=== PATIENT | male | born 1935 | race Caucasian/White ===

== ENCOUNTER 2017-03-21 13:47 | Inpatient (IN) | payer OTHER ==
[~2017-03-21] VITALS: Ht 172.7 cm; Wt 63.6 kg
[~2017-03-21 13:47] MED LIST: ASPI81TA3 PO; BENA40TA41 PO; KENC25 TOP; METO-53 PO
--- NOTE | 2017-03-21 14:15 | ERD ---
ER Documentation Chief Complaint Chief Complaint Fainted HPI The patient is a 81-year-old male, presenting because he fainted at the daycare , complaints of dizziness, nausea but no vomiting. He is now awake, alert, denies any symptoms. He had similar symptoms previously, denies chest pain, neck pain, dyspnea, abdominal pain, vomiting or dysuria. He does smoke nor drink Medical history: Hypertension, dyslipidemia, CAD, history of colon cancer, A Fib Surgical History: Colostomy ROS All systems reviewed and are negative except as per history of present illness. Medications Home Meds Reported Medications Pyridoxine Hcl* (Vitamin B-6*) 50 Mg Capsule, 50 MG PO DAILY, CAP 03/21/17 Acetaminophen* (Tylenol*) 500 Mg Tab, 500 MG PO Q4H Y for MILD PAIN LEVEL 1-3, TAB 03/21/17 Levothyroxine Sodium* (Levothyroxine Sodium*) 100 Mcg Tablet, 100 MCG PO BEFORE BREAKFAST, #30 TAB 03/21/17 Pravastatin Sodium* (Pravastatin Sodium*) 40 Mg Tablet, 40 MG PO HS, TAB 03/21/17 Metoprolol Tartrate* (Lopressor*) 50 Mg Tab, 50 MG PO BID, #60 TAB 03/21/17 Losartan-Hydrochlorothiazide (Losartan-HCTZ) 100-25 Mg Tab, 1 TAB PO DAILY, TAB 03/21/17 Aspirin* (Aspirin* EC) 81 Mg Tablet.dr, 81 MG PO DAILY, TAB 03/21/17 Amlodipine Besylate* (Amlodipine Besylate*) 10 Mg Tablet, 10 MG PO DAILY, #30 TAB 03/21/17 Discontinued Reported Medications Metoprolol (Lopressor) 50 Mg Tablet, 50 MG PO DAILY 04/27/12 Benazepril Hcl* (Benazepril Hcl*) 40 Mg Tablet, 40 MG PO DAILY 04/27/12 Aspirin* (Aspirin* Chew) 81 Mg Tab.chew, 81 MG PO DAILY 04/27/12 Discontinued Scripts Triamcinolone Acetonide* (Kenalog*) 0.25%-15GM Cr, 1 APPLIC TOP BID for 10 Days , EA Prov:ZHAO CHAUDHARY MD 07/20/15 Allergies Allergies: Coded Allergies: No Known Allergy (Unverified , 03/21/17) PMhx/Soc History of Surgery: Yes (colon resection with colostomy) Anesthesia Reaction: No Hx Neurological Disorder: No Hx Respiratory Disorders: Yes (asthma,) Hx Cardiac Disorders: Yes (HTN, HIGH CHOLESTEROL, ) Hx Psychiatric Problems: No Hx Miscellaneous Medical Probl: No Hx Alcohol Use: No Hx Substance Use: No Hx Tobacco Use: No Physical Exam Vitals Vital Signs Date Time Temp Pulse Resp B/P Pulse Ox O2 Delivery O2 Flow Rate FiO2 03/21/17 16:02 66 17 104/63 Nasal Cannula 2.0 03/21/17 15:14 73 15 117/71 95 Nasal Cannula 2.0 03/21/17 14:11 98.6 75 17 99/55 100 Physical Exam Const: No acute distress. Head: Atraumatic. Eyes: Normal Conjunctiva. ENT: Normal External Ears, Nose and Mouth. Neck: Full range of motion. No meningismus. Resp: Clear to auscultation bilaterally. Cardio: Irregularly irregular Abd: Soft, non distended, normal bowel sounds, non tender. Skin: No petechiae or rashes. Back: No midline or flank tenderness. Ext: No cyanosis, or edema. Neur: Awake and alert. No focal deficit Psych: Normal Mood and Affect. Result Diagram: 03/21/17 1458 03/21/17 1458 Results 24 hrs Laboratory Tests Test 03/21/17 14:19 03/21/17 14:58 Bedside Glucose 118mg/dL White Blood Count 9.710^3/ul Red Blood Count 5.0210^6/ul Hemoglobin 14.9g/dl Hematocrit 43.7% Mean Corpuscular Volume 87.1fl Mean Corpuscular Hemoglobin 29.7pg Mean Corpuscular Hemoglobin Concent 34.1g/dl Red Cell Distribution Width 13.7% Platelet Count 32760^3/UL Mean Platelet Volume 8.7fl Neutrophils % 73.5% Lymphocytes % 12.5% Monocytes % 9.7% Eosinophils % 3.3% Basophils % 0.6% Nucleated Red Blood Cells % 0.0/100WBC Neutrophils # 7.110^3/ul Lymphocytes # 1.210^3/ul Monocytes # 0.910^3/ul Eosinophils # 0.310^3/ul Basophils # 0.110^3/ul Nucleated Red Blood Cells # 0.010^3/ul Prothrombin Time 12.4Sec Prothrombin Time Ratio 1.0 INR International Normalized Ratio 0.92 Activated Partial Thromboplast Time 27.2Sec Sodium Level 143mmol/L Potassium Level 4.6mmol/L Chloride Level 107mmol/L Carbon Dioxide Level 21mmol/L Anion Gap 20 Blood Urea Nitrogen 29mg/dl Creatinine 1.81mg/dl Glucose Level 117mg/dl Calcium Level 9.8mg/dl Troponin I < 0.012ng/ml Current Medications Medications (Trade) Dose Ordered Sig/Kasi Route PRN Reason Start Time Stop Time Status Last Admin Dose Admin Sodium Chloride (NS) 500 ml @ 500 mls/hr Q1H ONCE IV 03/21/17 14:30 03/21/17 15:29 DC 03/21/17 14:57 Procedures/[place] [id number] Radiology Main Line: [phone] DIAGNOSTIC IMAGING REPORT Patient: ROSARIO FELTON : 1935 Age: 81 Sex: M MR #: [id number] DOS: 03/21/17 1428 Ordering MD: CHADWICK DAVISON MD Location: E/R Room/Bed: PROCEDURE: CT Brain without contrast. CLINICAL INDICATION: Syncope. TECHNIQUE: A CT of the brain was performed on multidetector high-resolution CT scanner utilizing axial sections from the skull base through the vertex without contrast. The scan was reviewed in soft tissue brain and high frequency resolution bone algorithm windows. Images were reviewed on a high- resolution PACS workstation. One or more the following does reduction techniques were utilized: Automated exposure control, adjustment of the mA/ or kV according to patient's size, or use of iterative reconstruction technique. The exam CTDI = 44.26 mGy and the DLP = 720.23 mGy-cm. DICOM images are available. COMPARISON: Brain CT 04/26/2012. Brain MRI 04/26/2012. FINDINGS: The ventricles and sulci are mildly prominent indicative of volume loss. There is no intracranial hemorrhage, mass effect or midline shift. No abnormal intra- axial or extra-axial fluid collections are seen. The cannon/white matter differentiation is preserved. There are mild scattered foci of hypoattenuation in the white matter, which are nonspecific in etiology but likely reflect chronic small vessel ischemic changes. There are mild intracranial vascular calcifications consistent with atherosclerosis. The visualized paranasal sinuses are essentially clear. IMPRESSION: 1. No acute intracranial hemorrhage, transcortical infarction or mass effect. 2. Mild intracranial atherosclerosis and chronic small vessel ischemic changes. 3. Mild generalized cerebral volume loss. RPTAT: HH .Luzma Wadsworth MD, MD Date Time Electronically viewed and signed by .Luzma Wadsworth MD, MD on 03/21/2017 15: 38 .[place] [id number] Radiology Main Line: [phone] DIAGNOSTIC IMAGING REPORT Patient: ROSARIO FELTON : 1935 Age: 81 Sex: M MR #: [id number] DOS: 03/21/17 1428 Ordering MD: CHADWICK DAVISON MD Location: E/R Room/Bed: PROCEDURE: CT Brain without contrast. CLINICAL INDICATION: Syncope. TECHNIQUE: A CT of the brain was performed on multidetector high-resolution CT scanner utilizing axial sections from the skull base through the vertex without contrast. The scan was reviewed in soft tissue brain and high frequency resolution bone algorithm windows. Images were reviewed on a high- resolution PACS workstation. One or more the following does reduction techniques were utilized: Automated exposure control, adjustment of the mA/ or kV according to patient's size, or use of iterative reconstruction technique. The exam CTDI = 44.26 mGy and the DLP = 720.23 mGy-cm. DICOM images are available. COMPARISON: Brain CT 04/26/2012. Brain MRI 04/26/2012. FINDINGS: The ventricles and sulci are mildly prominent indicative of volume loss. There is no intracranial hemorrhage, mass effect or midline shift. No abnormal intra- axial or extra-axial fluid collections are seen. The cannon/white matter differentiation is preserved. There are mild scattered foci of hypoattenuation in the white matter, which are nonspecific in etiology but likely reflect chronic small vessel ischemic changes. There are mild intracranial vascular calcifications consistent with atherosclerosis. The visualized paranasal sinuses are essentially clear. IMPRESSION: 1. No acute intracranial hemorrhage, transcortical infarction or mass effect. 2. Mild intracranial atherosclerosis and chronic small vessel ischemic changes. 3. Mild generalized cerebral volume loss. RPTAT: HH .Luzma Wadsworth MD, MD Date Time Electronically viewed and signed by .Luzma Wadsworth MD, MD on 03/21/2017 15: 38 .N/ CC: CHADWICK DAVISON MD CC: CHADWICK DAVISON MD EKG: Read by emergency physician Rate/Rhythm: A fib 74 beats/min QRS, ST, T-waves: No ST elevation, no T inversion, LVH Impression: Abnormal EKG MEDICAL MAKING DECISION: The patient is a 81-year-old male, presenting with acute syncope of unclear etiology, most likely due to acute dehydration, DIANE. He was treated with 500 mL normosaline with good response The differential diagnoses considered include but are not limited to bradyarrhythmia, tachyarrhythmias, aortic outflow obstruction, neurogenic including subarachnoid hemorrhage, orthostatic hypotension and all of its causes , hypoglycemia, dysautonomia, medications. Departure Diagnosis: Primary Impression: Syncope Additional Impressions: Dehydration Acute kidney injury Condition: Stable Comments I discussed the findings with the patient. I discussed the patient with the hospitalist Dr. Hyatt at 4 PM who was made aware of the lab, the treatment, the patient condition. The patient is admitted to [facility] Disclaimer: Inadvertent spelling and grammatical errors are likely due to EHR/ dictation software use and do not reflect on the overall quality of patient care. Also, please note that the electronic time recorded on this note does not necessarily reflect the actual time of the patient encounter. CHADWICK DAVISON MD Mar 21, 2017 14:15
[2017-03-21] MEDS ORDERED: SOD CHLORIDE 0.9% 500 ML IV ONE (14:30)
[2017-03-21 15:15] LABS: BASOPHIL # 0.1 10^3/ul (0.0-0.1); BASOPHILS % 0.6 % (0.0-2.0); EOSINOPHILS # 0.3 10^3/ul (0.0-0.5); EOSINOPHILS % 3.3 % (0.0-7.0); HEMATOCRIT 43.7 % (42.0-52.0); HEMOGLOBIN 14.9 g/dl (14.0-18.0); LYMPHOCYTES # 1.2 10^3/ul (0.8-2.9); LYMPHOCYTES % 12.5 % (15.0-51.0); MEAN CORPUSCULAR HEMOGLOBIN 29.7 pg (29.0-33.0); MEAN CORPUSCULAR HGB CONC 34.1 g/dl (32.0-37.0); MEAN CORPUSCULAR VOLUME 87.1 fl (82.0-101.0); MEAN PLATELET VOLUME 8.7 fl (7.4-10.4); MONOCYTE # 0.9 10^3/ul (0.3-0.9); MONOCYTES % 9.7 % (0.0-11.0); NEUTROPHIL # 7.1 10^3/ul (1.6-7.5); NEUTROPHILS % 73.5 % (39.0-77.0); PLATELET COUNT 304 10^3/UL (140-415); RED BLOOD COUNT 5.02 10^6/ul (4.70-6.10); RED CELL DISTRIBUTION WIDTH 13.7 % (11.5-14.5); WHITE BLOOD COUNT 9.7 10^3/ul (4.8-10.8)
[2017-03-21 15:36] LABS: INR 0.92; PROTIME 12.4 Sec (11.9-14.9)
[2017-03-21 15:37] LABS: PARTIAL THROMBOPLASTIN TIME 27.2 Sec (25.0-35.0)
--- NOTE | 2017-03-21 15:38 | RADRPT ---
PROCEDURE: CT Brain without contrast. CLINICAL INDICATION: Syncope. TECHNIQUE: A CT of the brain was performed on multidetector high-resolution CT scanner utilizing a xial sections from the skull base through the vertex without contrast. The scan was reviewed in sof t tissue brain and high frequency resolution bone algorithm windows. Images were reviewed on a high -resolution PACS workstation. One or more the following does reduction techniques were utilized: Aut omated exposure control, adjustment of the mA/ or kV according to patient's size, or use of iterativ e reconstruction technique. The exam CTDI = 44.26 mGy and the DLP = 720.23 mGy-cm. DICOM images are available. COMPARISON: Brain CT 04/26/2012. Brain MRI 04/26/2012. FINDINGS: The ventricles and sulci are mildly prominent indicative of volume loss. There is no intracranial he morrhage, mass effect or midline shift. No abnormal intra-axial or extra-axial fluid collections ar e seen. The cannon/white matter differentiation is preserved. There are mild scattered foci of hypoattenuation in the white matter, which are nonspecific in etiol ogy but likely reflect chronic small vessel ischemic changes. There are mild intracranial vascular calcifications consistent with atherosclerosis. The visualized paranasal sinuses are essentially rene ar. IMPRESSION: 1. No acute intracranial hemorrhage, transcortical infarction or mass effect. 2. Mild intracranial atherosclerosis and chronic small vessel ischemic changes. 3. Mild generalized cerebral volume loss. RPTAT: HH .Luzma Wadsworth MD, MD Date Time Electronically viewed and signed by .Luzma Wadsworth MD, MD on 03/21/2017 15:38 .N/
[2017-03-21 15:43] LABS: ANION GAP 20 (8-16); BLOOD UREA NITROGEN 29 mg/dl (7-20); CALCIUM 9.8 mg/dl (8.4-10.2); CARBON DIOXIDE 21 mmol/L (21-31); CHLORIDE 107 mmol/L (97-110); CREATININE 1.81 mg/dl (0.61-1.24); GLUCOSE 117 mg/dl (70-220); POTASSIUM 4.6 mmol/L (3.5-5.1); SODIUM 143 mmol/L (135-144)
[2017-03-21 15:57] LABS: TROPONIN-I < 0.012 ng/ml (0.00-0.12)
[2017-03-21] MEDS ORDERED: ASPI-664 PO (16:52)
[2017-03-21] MEDS ORDERED: AMLO-147 PO (16:52)
[2017-03-21] MEDS ORDERED: LOSA1TAB20 PO (16:52)
[2017-03-21] MEDS ORDERED: PRAV40TA76 PO (16:53)
[2017-03-21] MEDS ORDERED: LEVO100T87 PO (16:53)
[2017-03-21] MEDS ORDERED: METO-429 PO (16:53)
[2017-03-21] MEDS ORDERED: TYL500 PO (16:54)
[2017-03-21] MEDS ORDERED: PYRI50CA PO (16:55)
[2017-03-21 17:39] VITALS: PULSE 77
[2017-03-21 17:42] VITALS: BP 123/69; PULSE 80; RESP 20
[2017-03-21 18:19] VITALS: Ht 172.7 cm; Wt 63.6 kg
[2017-03-21] MEDS ORDERED: NACL 0.9% 3 ML SYG IV SCH (19:00)
[2017-03-21] MEDS ORDERED: ONDANSETRON 4 MG INJ IV PRN (19:00)
[2017-03-21] MEDS ORDERED: DOCUSATE SODIUM 100 MG CAP PO PRN (19:00)
[2017-03-21] MEDS ORDERED: ACETAMINOPHEN 325 MG TAB PO PRN (19:00)
[2017-03-21] MEDS ORDERED: morphine 2 MG INJ IV PRN (19:00)
[2017-03-21] MEDS ORDERED: HYDROCODONE/APAP (5/325) TAB PO PRN (19:00)
--- NOTE | 2017-03-21 19:27 | HP ---
Date/Time of Note Date/Time of Note DATE: 03/21/17 TIME: 19:22 Assessment/Plan VTE Prophylaxis VTE Prophylaxis Intervention: LMWH Assessment/Plan Chief Complaint/Hosp Course 1. Syncope likely secondary to orthostatic hypotension Will hold patient's home BP medications of losartan hydrochlorothiazide and Norvasc Resume metoprolol only CT brain shows no acute findings Carotid ultrasound and 2D echo PT eval 2. History of NE Continue home aspirin, statin and beta-ivette 3. History of colon cancer status post remote history of resection-no acute issues 4. Acute versus chronic kidney disease Monitor Prophylaxis: Lovenox Problems: HPI/ROS Admit Date/Time Admit Date/Time Mar 21, 2017 at 16:02 Hx of Present Illness Patient is an 81-year-old male with a history of hypertension and NE 17 years ago as well as colon cancer status post surgery in the past. Patient was at his adult daycare when he syncopized, BP was noted to be low. Patient does have a history of intermittent hypotension, patient did not hit his head on the ground, he currently has no complaints. ROS Constitutional: improved, no complaints Eyes: no complaints ENT: no complaints Respiratory: no complaints Cardiovascular: no complaints Gastrointestinal: no complaints Genitourinary: no complaints Musculoskeletal: no complaints Skin: no complaints Neurologic: no complaints Endocrine: no complaints Lymphatic: no complaints Psychological: nl mood/affect, no complaints Immunologic: no complaints PMH/Family/Social Past Medical History Medical History: cancer (colon), hypertension Past Surgical History Past Surgical Hx: bowel resection Family History Significant Family History: no pertinent family hx Social History Alcohol Use: none Smoking Status: Former smoker Drug Use: none Exam/Review of Systems Vital Signs Vitals Vital Signs Date Time Temp Pulse Resp B/P Pulse Ox O2 Delivery O2 Flow Rate FiO2 03/21/17 17:42 98.5 80 20 123/69 2 Nasal Cannula 03/21/17 16:02 2.0 Exam Constitutional: alert, oriented Respiratory: clear to auscultation Cardiovascular: regular rate and rhythm Gastrointestinal: soft, No distended Musculoskeletal: nl extremities to inspection Labs Result Diagram: 03/21/17 1458 03/21/17 1458 Medications Medications Current Medications Ondansetron HCl (Zofran Inj) 4 mg Q6H PRN IV NAUSEA AND/OR VOMITING; Start 03/21/17 at 19:00 Acetaminophen (Tylenol Tab) 650 mg Q6H PRN PO PAIN LEVEL 1-3 OR FEVER; Start 03/21/17 at 19:00 Acetaminophen/ Hydrocodone Bitart ([place] (5/325)) 1 tab Q6H PRN PO MODERATE PAIN LEVEL 4-6; Start 03/21/17 at 19:00 Morphine Sulfate (morphine) 2 mg Q4H PRN IV SEVERE PAIN LEVEL 7-10; Start 03/21 at 19:00 Docusate Sodium (Colace) 100 mg Q12H PRN PO CONSTIPATION; Start 03/21/17 at 19: 00 Enoxaparin Sodium (Lovenox) 40 mg DAILY SC ; Start 03/22/17 at 09:00 Amlodipine Besylate (Norvasc) 10 mg DAILY PO ; Start 03/22/17 at 09:00 Aspirin (Halfprin) 81 mg DAILY PO ; Start 03/22/17 at 09:00 Pyridoxine HCl (Vitamin B6) 50 mg DAILY PO ; Start 03/22/17 at 09:00 Atorvastatin Calcium (Lipitor) 10 mg DAILY@21 PO ; Start 03/21/17 at 21:00 Influenza Virus Vaccine (Fluzone) 0.5 ml ONCE ONCE IM* ; Start 03/22/17 at 09:00 ; Stop 03/22/17 at 09:01 BRANDT GRAVES Mar 21, 2017 19:27
[2017-03-21 20:00] VITALS: PULSE 80
--- NOTE | 2017-03-21 20:22 | RADRPT ---
PROCEDURE: US Carotids. CLINICAL INDICATION: Syncope TECHNIQUE: Multiple sonographic of the carotid bifurcation region and vertebral arteries were obta ined utilizing cannon scale, duplex and color-flow imaging. The images were reviewed on a PACS worksta tion. COMPARISON: No prior studies are available for comparison. FINDINGS: Evaluation of the right carotid bifurcation region reveals moderate atherosclerotic disease. Evaluation of the left carotid bifurcation region reveals mild to moderate calcific atherosclerotic disease. There is antegrade flow within the vertebral arteries bilaterally. RIGHT CAROTID MEASUREMENTS: Common Carotid Adzpfy56.1 (cm/sec) Internal Carotid Artery - fdlajsre064.7 (cm/sec) Internal Carotid Artery - ylf885 (cm/sec) Internal Carotid Artery - jhqlqo65.6 (cm/sec) Internal Carotid/Common Carotid6.6 LEFT CAROTID MEASUREMENTS: Common Carotid Lhebwl80.9 (cm/sec) Internal Carotid Artery - ngmywqds53.6 (cm/sec) Internal Carotid Artery - mid58.8 (cm/sec) Internal Carotid Artery - aqqrdm07.4 (cm/sec) Internal Carotid/Common Carotid1.0 IMPRESSION: 1. Approximately 50-69% stenosis in the proximal right internal carotid artery. 2. Approximately 70-99% stenosis in the mid-right internal carotid artery. Further evaluation with a CT angiogram is suggested. 3. No hemodynamically significant stenosis in the left carotid system. RPTAT: HPNM Physician Lester Date Time Electronically viewed and signed by Physician Lester on 03/21/2017 20:22 /
[2017-03-21 20:53] VITALS: BP 107/65; RESP 17
[2017-03-21] MEDS ORDERED: ATORVASTATIN 10 MG TAB PO SCH (21:00)
[2017-03-22] VITALS (10 sets, daily range): BP systolic 98–120; BP diastolic 56–74; PULSE 40–80; RESP 17
[2017-03-22 06:46] LABS: BASOPHILS % 0.7 % (0.0-2.0); EOSINOPHILS # 0.7 10^3/ul (0.0-0.5); HEMATOCRIT 39.6 % (42.0-52.0); HEMOGLOBIN 13.4 g/dl (14.0-18.0); LYMPHOCYTES # 1.4 10^3/ul (0.8-2.9); LYMPHOCYTES % 23.9 % (15.0-51.0); MEAN CORPUSCULAR HEMOGLOBIN 29.6 pg (29.0-33.0); MEAN CORPUSCULAR HGB CONC 33.8 g/dl (32.0-37.0); MEAN CORPUSCULAR VOLUME 87.6 fl (82.0-101.0); MEAN PLATELET VOLUME 8.9 fl (7.4-10.4); MONOCYTE # 0.6 10^3/ul (0.3-0.9); MONOCYTES % 10.3 % (0.0-11.0); NEUTROPHIL # 3.2 10^3/ul (1.6-7.5); NEUTROPHILS % 53.9 % (39.0-77.0); PLATELET COUNT 252 10^3/UL (140-415); RED BLOOD COUNT 4.52 10^6/ul (4.70-6.10); RED CELL DISTRIBUTION WIDTH 13.7 % (11.5-14.5); WHITE BLOOD COUNT 5.9 10^3/ul (4.8-10.8)
[2017-03-22 06:59] LABS: ALBUMIN 3.3 g/dl (3.3-4.9); BILIRUBIN,INDIRECT 0.4 mg/dl (0-1.1); BILIRUBIN,TOTAL 0.4 mg/dl (0.2-1.3); CALCIUM 9.7 mg/dl (8.4-10.2); CHOL/HDL RATIO 7.1 RATIO; CREATININE 1.38 mg/dl (0.61-1.24); PHOSPHORUS 4.2 mg/dl (2.5-4.9); POTASSIUM 4.5 mmol/L (3.5-5.1); TOTAL PROTEIN 6.6 g/dl (6.1-8.1)
[2017-03-22] MEDS ORDERED: LEVOTHYROXINE 100 MCG TAB PO SCH (07:00)
[2017-03-22 07:14] LABS: T3 UPTAKE 31.2 % (23.5-40.5)
[2017-03-22] MEDS ORDERED: AMLODIPINE 10 MG TAB PO SCH (09:00)
[2017-03-22] MEDS ORDERED: METOPROLOL 50 MG TAB PO SCH (09:00)
[2017-03-22] MEDS ORDERED: PYRIDOXINE 50 MG TAB PO SCH (09:00)
[2017-03-22] MEDS ORDERED: INFLUENZA VIRUS VACCINE 0.5 ML SYG IM* ONE (09:00)
[2017-03-22] MEDS ORDERED: ENOXAPARIN 40 MG/0.4 ML SYG SC SCH (09:00)
[2017-03-22] MEDS ORDERED: ASPIRIN (EC) 81 MG TAB PO SCH (09:00)
--- NOTE | 2017-03-22 12:13 | RADRPT ---
Echocardiogram Report Patient Name: ROSARIO FELTON Gender: Male Date: 1935 Study Date: 22-Mar-2017 Disc Pad Grinder: Liborio Malave [facility] Location: [facility] Ref. Physician: BRANDT GRAVES Quality: Good Procedures: Transthoracic echocardiogram with complete 2D, M-Mode, and doppler examination. Indications: Syncope. 2D/M Mode Doppler Measurement Value Normal Ranges Measurement Value Normal Ranges LVIDd 2D 3.7 3.5 - 5.6 cm AV Peak Tomy 1.0 m/sec LVIDs 2D 2.7 2.1 - 4.1 cm AV Peak PG 3.8 mmHg LVPWd 2D 1.3 0.6 - 1.1 cm AI Peak PG 28.2 mmHg IVSd 2D 1.3 0.6 - 1.1 cm AI Peak Tomy 2.7 m/sec AoR Diam 2D 2.9 2.0 - 3.7 cm AI PHT 559.5 msec EDV 2D 57.0 cm3 LVOT Peak Tomy 0.7 m/sec ESV 2D 20.8 cm3 LVOT Peak PG 2.2 mmHg LA Dimen 2D 3.5 2.3 - 4.0 cm TR Peak Tomy 3.0 m/sec TR Peak PG 36.1 mmHg RVSP 46.0 mmHg Findings Left Ventricle: Normal left ventricular cavity size. Mild concentric left ventricular hypertrophy. Mild global left ventricular systolic dysfunction. Ejection fraction is visually estimated at 45 %. Abnormal Diastolic Function. Right Ventricle: Normal right ventricular size. Normal right ventricular systolic function. Left Atrium: The left atrium is normal in size. Right Atrium: The right atrium is normal in size. Mitral Valve: Normal appearance and function of the mitral valve with trace physiologic regurgitation. Aortic Valve: No hemodynamically significant aortic stenosis by doppler. Non coronary cusp appears moderately calcified. Trileaflet aortic valve. Mild aortic valve regurgitation. Tricuspid Valve: Normal appearance of the tricuspid valve. Estimated peak PA systolic pressure 46 mmHg. There is mild tricuspid regurgitation. Pulmonic Valve: Normal pulmonic valve appearance. Pericardium: Normal pericardium with no significant pericardial effusion. Aorta: Normal aortic root. IVC: Normal size and normal respiratory collapse consistent with normal right atrial pressure. Conclusions 1.Normal left ventricular cavity size. Mild concentric left ventricular hypertrophy. Mild global left ventricular systolic dysfunction. Ejection fraction is visually estimated at 45 %. Abnormal Diastolic Function. 2.Normal appearance and function of the mitral valve with trace physiologic regurgitation. 3.No hemodynamically significant aortic stenosis by doppler. Non coronary cusp appears moderately calcified. Trileaflet aortic valve. Mild aortic valve regurgitation. 4.Normal appearance of the tricuspid valve. Estimated peak PA systolic pressure 46 mmHg. There is mild tricuspid regurgitation. 5.Normal size and normal respiratory collapse consistent with normal right atrial pressure. Electronically Signed By: Asher Barajas 22-Mar-2017 12:13:07 -0800 Patient Name: ROSARIO FELTON Study Date: 22-Mar-2017 [id number]
--- NOTE | 2017-03-22 14:06 | PDOCDIS ---
Discharge Instructions CONDITION Patient Condition: Good HOME CARE INSTRUCTIONS: Diet Instructions: Modified Fat ACTIVITY: Activity Restrictions: No Restrictions FOLLOW UP/APPOINTMENTS Follow-up Plan FOLLOW UP WITH YOUR PRIMARY CARE PHYSICIAN IN 1-2 WEEKS BRANDT GRAVES Mar 22, 2017 14:06
--- NOTE | 2017-03-22 14:17 | DS ---
Date/Time of Note Date/Time of Note DATE: 03/22/17 TIME: 14:08 Discharge Summary Admission/Discharge Info Admit Date/Time Mar 21, 2017 at 16:02 Discharge Date/Time March 22, 2017 Discharge Diagnosis 1. Syncope secondary to orthostatic hypotension Patient's blood pressure has improved after holding home meds Hold home BP meds but will continue metoprolol CT brain shows no acute findings Carotid ultrasound does show atherosclerosis in the right carotid artery, have discussed findings with family at this point due to patient's age and CHF nonaggressive intervention is recommended, patient's syncope is likely secondary to hypotension and family informed that if issues with syncope persist in the setting of normal blood pressure then patient should follow-up with a vascular surgeon for further evaluation 2D echo shows EF of 45%-this is likely chronic in the setting of history of an NC PT eval 2. History of NC Continue home aspirin, statin and beta-ivette 3. History of colon cancer status post remote history of resection-no acute issues 4. Acute versus chronic kidney disease-improved Follow with PCP Patient Condition: Good Hospital Course Patient is an 81-year-old male with a history of hypertension and NC 17 years ago as well as colon cancer status post surgery in the past. Patient was at his adult daycare when he syncopized, BP was noted to be low. Patient does have a history of intermittent hypotension, patient did not hit his head on the ground, he currently has no complaints. Patient did continue to be hypotensive overnight and home meds were held. Patient's echo showed an EF of 45% which likely chronic from history of NC. Carotid ultrasound did show 70-99% stenosis in the right coronary artery. This finding was discussed with patient's daughter and it was decided that non aggressive intervention would be appropriate this time considering patient's age and CHF. In addition it is felt that patient's syncope was related to his low blood pressure and not carotid artery stenosis but patient's daughter was told that if his stenosis persist in the setting of normal blood pressure patient should follow-up with a vascular surgeon. Daughter did understand this plan. Patient did ambulate with PT with no reports of dizziness. Patient was to stop taking his home blood pressure medications except for metoprolol, patient's daughter was also instructed of this. On the day of discharge patient 's vitals, labs and physical exam are stable he had no acute complaints and questions were answered. Home Meds Reported Medications Pyridoxine Hcl* (Vitamin B-6*) 50 Mg Capsule, 50 MG PO DAILY, CAP 03/21/17 Acetaminophen* (Tylenol*) 500 Mg Tab, 500 MG PO Q4H Y for MILD PAIN LEVEL 1-3, TAB 03/21/17 Levothyroxine Sodium* (Levothyroxine Sodium*) 100 Mcg Tablet, 100 MCG PO BEFORE BREAKFAST, #30 TAB 03/21/17 Pravastatin Sodium* (Pravastatin Sodium*) 40 Mg Tablet, 40 MG PO HS, TAB 03/21/17 Metoprolol Tartrate* (Lopressor*) 50 Mg Tab, 50 MG PO BID, #60 TAB 03/21/17 Aspirin* (Aspirin* EC) 81 Mg Tablet.dr, 81 MG PO DAILY, TAB 03/21/17 Discontinued Reported Medications Losartan-Hydrochlorothiazide (Losartan-HCTZ) 100-25 Mg Tab, 1 TAB PO DAILY, TAB 03/21/17 Amlodipine Besylate* (Amlodipine Besylate*) 10 Mg Tablet, 10 MG PO DAILY, #30 TAB 03/21/17 Metoprolol (Lopressor) 50 Mg Tablet, 50 MG PO DAILY 04/27/12 Benazepril Hcl* (Benazepril Hcl*) 40 Mg Tablet, 40 MG PO DAILY 04/27/12 Aspirin* (Aspirin* Chew) 81 Mg Tab.chew, 81 MG PO DAILY 04/27/12 Discontinued Scripts Triamcinolone Acetonide* (Kenalog*) 0.25%-15GM Cr, 1 APPLIC TOP BID for 10 Days , EA Prov:ZHAO CHAUDHARY MD 07/20/15 Follow-up Plan FOLLOW UP WITH YOUR PRIMARY CARE PHYSICIAN IN 1-2 WEEKS Primary Care Provider Myrtle Mays Time spent on discharge: > 30 minutes BRANDT GRAVES Mar 22, 2017 14:17
[2017-03-22] MEDS ORDERED: HYDROCORTISONE 0.5% 28.35 GM OINT TOP SCH (21:00)
== END 2017-03-22 17:54 | disposition home or self-care (01) | DRG 312 ==
LOC: E/R 13:47 → TEL 16:02
PROVIDERS: ADMIT Internal Medicine; ATTEND Internal Medicine
DX: I95.1 Orthostatic hypotension (principal); N17.9 Acute kidney failure, unspecified; I25.2 Old myocardial infarction; Z85.038 Personal history of other malignant neoplasm of large intestine; N18.9 Chronic kidney disease, unspecified
CPT/HCPCS: 36415; 70450; 80048; 80053; 80061; 82962; 83036; 83735; 84100; 84436; 84479; 84484; 85025; 85610; 85730; 90686; 93005; 93306; 93880; 97163; J1650; J7040

== ENCOUNTER 2017-06-23 11:52 | Emergency (ER) | END 2017-06-23 14:20 | disposition home or self-care (01) ==